=== PATIENT | male | born 1980 | race Two or more races ===

== ENCOUNTER 2019-10-09 14:40 | Inpatient (IN) | payer OTHER ==
[~2019-10-09] VITALS: Ht 162.6 cm; Wt 59.8 kg
[2019-10-09 16:13] LABS: Amylase 48 U/L (25-115); Lipase 115 U/L (73-393)
[2019-10-09 16:15] LABS: Albumin 3.4 g/dL (3.4-5.0); Calcium 9.5 mg/dL (8.5-10.1); Potassium 4.2 mmol/L (3.5-5.1)
[2019-10-09 16:18] LABS: BUN/Creatinine Ratio 18.3; Bilirubin, Total 1.3 mg/dL (0.2-1.0); Total Protein 9.8 g/dL (6.4-8.2)
[2019-10-09] MEDS ORDERED: cefTRIAXone 1GM/50ML D5W 50 ML IV ONE (17:00)
[2019-10-09] MEDS ORDERED: FUROSEMIDE 20 MG/2 ML VIAL IV ONE (17:00)
[2019-10-09 17:34] LABS: Basophils # (auto) 0.1 10 ^3/uL (0-0.2); Eosinophils # (auto) 0 10 ^3/uL (0-0.8); Monocytes # (auto) 1.1 10 ^3/uL (0-1.3); Platelet Count (auto) 97 10^3/uL (140-450)
[2019-10-09 17:35] LABS: Hematocrit 32.6 % (41.0-53.0); Hemoglobin 10.4 g/dL (13.5-17.5); Lymphocytes # (auto) 1.5 10 ^3/uL (0.4-5.4); Lymphocytes % (auto) 17.2 % (10.0-50.0); Mean Corpuscular Hemoglobin 21.4 pg (28.0-32.0); Mean Corpuscular Volume 66.9 fL (80.0-100.0); Monocytes % (auto) 12.3 % (0.0-12.0); Neutrophils # (auto) 6.2 10 ^3/uL (1.6-8.6); Neutrophils % (auto) 69.5 % (37.0-80.0); Nucleated Red Blood Cells % 0.1 %; Red Blood Cells 4.86 10^6/uL (4.5-5.90); White Blood Cell 8.9 10^3/uL (4.4-10.8)
[2019-10-09 17:41] LABS: Red Cell Distribution Width 25.3 % (11.8-14.3)
[2019-10-09 17:45] LABS: Urine Bacteria NONE SEEN /hpf (None Seen); Urine Blood Negative /uL (Negative); Urine Hyaline Cast FEW /lpf (0 - 2); Urine Specific Gravity 1.019 (1.001-1.035); Urine WBC 7 /hpf (0 - 3)
[2019-10-09] MEDS ORDERED: VANCOMYCIN PER PHARMACY 0 MG IV SCH (18:45)
[2019-10-09] MEDS: VANCOMYCIN 1GM/250ML 250 ML IV SCH (20:04)
[2019-10-09] MEDS: FUROSEMIDE 20 MG/2 ML VIAL IV SCH (20:04)
[2019-10-09] MEDS: POTASSIUM CHL 10 Meq TABLET PO SCH (20:05)
--- NOTE | 2019-10-09 20:15 | NUR ---
MS admit from ER ALEJANDRINA STERN admitted to tele/MS after SBAR received. Patient oriented to HANY MARQUES RN primary RN, unit, room, bed, and unit policies regarding patient care and visiting hours. Patient weighed by bedscale and encouraged to call if they need something. All questions and concerns addressed, patient verbalized understanding.
--- NOTE | 2019-10-09 21:00 | NUR ---
Wound pictures: RN took pictures of patient's rashes and umbilical hernia.
[2019-10-09] MEDS: HYDROcodone-ACET 10/325MG TAB PO PRN (21:24)
--- NOTE | 2019-10-09 21:24 | NUR ---
Pain: Patient requesting pain medication. Patient complaining of pain. Patient given PRN [place].
[2019-10-09 22:00] VITALS: BP 115/72
--- NOTE | 2019-10-09 22:00 | NUR ---
Temp: Upon arrival, patient was noted with an elevated temp of 99.6 F. RN provided cooling measures, patient tolerated cooling measures well. RN reassessed temp and noted it to decrease to 98.6F. Patient continues to rest in bed comfortably with no s/s of discomfort or distress.
--- NOTE | 2019-10-09 22:24 | NUR ---
Pain reassessed. Patient reassessed for effectiveness of PRN [place]. PRN morphine effective, patient's pain subsided. Patient resting in bed comfortably.
[2019-10-10] MEDS: HYDROcodone-ACET 10/325MG TAB PO PRN ×3 (01:36→21:13)
--- NOTE | 2019-10-10 01:36 | NUR ---
Pain: Patient requesting pain medication. Patient complaining of pain. Patient given PRN [place].
--- NOTE | 2019-10-10 02:36 | NUR ---
Pain reassessed. Patient reassessed for effectiveness of PRN [place]. PRN morphine effective, patient's pain subsided. Patient resting in bed comfortably.
[2019-10-10 05:57] VITALS: BP 114/88
[2019-10-10] MEDS: FUROSEMIDE 20 MG/2 ML VIAL IV SCH ×2 (06:23→18:12)
[2019-10-10 06:40] LABS: INR 1.07 (0.9-1.15); Partial Thromboplastin Time 28.5 sec (23.64-32.05)
[2019-10-10 06:42] LABS: Basophils # (auto) 0.1 10 ^3/uL (0-0.2); Eosinophils # (auto) 0 10 ^3/uL (0-0.8); Hemoglobin 9.6 g/dL (13.5-17.5); Lymphocytes # (auto) 1.5 10 ^3/uL (0.4-5.4); Nucleated Red Blood Cells % 0.1 %; White Blood Cell 8.2 10^3/uL (4.4-10.8)
[2019-10-10 06:44] LABS: Basophils % (auto) 0.8 % (0.0-2.0); Calcium 9.1 mg/dL (8.5-10.1); Hematocrit 29.6 % (41.0-53.0); Lymphocytes % (auto) 18.9 % (10.0-50.0); Mean Corpuscular Hemoglobin 21.5 pg (28.0-32.0); Mean Corpuscular Hgb Conc. 32.3 g/dL (32.0-36.0); Mean Corpuscular Volume 66.7 fL (80.0-100.0); Monocytes % (auto) 12.3 % (0.0-12.0); Neutrophils # (auto) 5.6 10 ^3/uL (1.6-8.6); Platelet Count (auto) 79 10^3/uL (140-450); Potassium 4.2 mmol/L (3.5-5.1); Red Blood Cells 4.44 10^6/uL (4.5-5.90)
[2019-10-10 06:48] LABS: BUN/Creatinine Ratio 17.7; Total Protein 8.9 g/dL (6.4-8.2)
[2019-10-10 06:52] LABS: Red Cell Distribution Width 25.8 % (11.8-14.3)
--- NOTE | 2019-10-10 07:30 | NUR ---
Opening Shift Note Assumed care of patient, awake and alert. No S/S of distress/SOB or pain. Bed in lowest and locked position with side rails up x2 and call light in reach. Instructed on POC and to call for assist PRN, will continue to monitor for changes Q1hr and PRN.
[2019-10-10] MEDS: VANCOMYCIN 1GM/250ML 250 ML IV SCH ×2 (08:04→20:45)
[2019-10-10 08:10] VITALS: BP 104/70
[2019-10-10 09:00] VITALS: BP 104/70
[2019-10-10] MEDS: POTASSIUM CHL 10 Meq TABLET PO SCH ×2 (09:41→21:07)
[2019-10-10] MEDS: ENOXAPARIN SOD 40 MG/0.4 ML SYRINGE SC SCH (09:44)
[2019-10-10 11:01] LABS: Hepatitis A Ab IgM Negative; Hepatitis B Core IgM Negative; Hepatitis B Surface Antigen Negative (Negative)
[2019-10-10 11:02] LABS: Hepatitis C Antibody Negative (Negative)
--- NOTE | 2019-10-10 11:32 | NUR ---
WOUND CARE NOTE: Wound care into see patient per wound care request regarding "multiple rashes/wounds" that are noted present on admission. Bedside nurse took photograph of patient's multiple skin issue upon admission for reference. Patient is 39 years old male with admitting diagnosis of Liver Failure,Anasarca,Cellulitis bilateral lower extremity. Patient with history of Liver Cirrhosis. Patient is resting in bed in Rm. 244-7. Patient is awake, alert and oriented. Patient is in no stated pain at this time and he appears to be in no pain using [place] Faces Pain Scale. Patient is self turning and repositioning. His Mykel score is 19. Patient noted with 5x4 abdominal hernia. He has multi pink/red rashes, dry dry to Rt posterior knee, foot and ankle. His L posterior knee at popliteal area (5x7cm) with multi small open bleeding wounds. Wounds area red with bright and dark red periwound, minimal serous drainage noted, no odor noted. Cleansed patient's L posterior knee wounds with wound cleanser, patted dry with gauze, applied Thera honey gel, covered with Opti foam and secured with stockinette. Patient tolerated well and denies any other wound. Guards at bedside. RECOMMENDATION: Nursing to continue with EOD/PRN dressing change to L popliteal wounds per MD order, redistribute pressure points with pillows, elevate edematous extremity on pillows, continue monitoring by wound care while patient is hospitalized. Addendum: 10/10/19 at 1409 by Michelle Hernandez RN Amended: Links added.
[2019-10-10 13:05] VITALS: BP 101/68
--- NOTE | 2019-10-10 13:29 | NUR ---
SPOKE TO DR. BOLDEN NEW ORDERS RECEIVED, READ BACK AND VERIFIED. SEE EMR FOR ORDERS.
[2019-10-10] MEDS: methylPREDNISolone SOD SUCC 125 MG/2 ML VL IV SCH ×2 (16:11→21:07)
[2019-10-10 17:00] VITALS: BP 117/74
--- NOTE | 2019-10-10 19:25 | NUR ---
Opening Shift Note Pt is resting in bed with eyes open and resp rate is even and unlabored. Pt is with 2 guards at bedside. Pt has right wrist and LE bilat cuffed to the bed. All extremities are cdi at the cuff sites. POC discussed with pt and pt verbalizes understanding. Pt abd is soft but distended and umbilical hernia noted. Pt with Optifoam drsg behind the knees bilat w/ sleeve drsg to hold in place. Discussed with pt about applying Cortisone cream per orders and pt verbalizes understanding. Bed is low, wheels are locked, and call light is with in reach.
[2019-10-10] MEDS: MONTELUKAST SODIUM 10 MG TAB PO SCH (21:09)
[2019-10-10] MEDS: HYDROCORTISONE 2.5% TOPICAL CREAM 30GM TUBE TOP SCH (21:13)
--- NOTE | 2019-10-10 21:14 | NUR ---
Pt reports abd pain 8/10 at this time and medicated with Hydrocodone 10/325 mg PO per orders.
[2019-10-10 22:00] VITALS: BP 116/84
--- NOTE | 2019-10-10 22:14 | NUR ---
Pain reassessed Pt now reports abd pain 2/10 at this time.
[2019-10-11 05:30] VITALS: BP 114/77
[2019-10-11] MEDS: FUROSEMIDE 20 MG/2 ML VIAL IV SCH ×2 (05:50→17:38)
[2019-10-11] MEDS: HYDROcodone-ACET 10/325MG TAB PO PRN ×4 (05:50→23:42)
--- NOTE | 2019-10-11 05:50 | NUR ---
Pt c/o RUQ pain and rates pain 7/10 at this time. Pt medicated with [place] 10/325mg PO per orders.
[2019-10-11] MEDS: VANCOMYCIN 1GM/250ML 250 ML IV SCH (08:59)
[2019-10-11 09:00] VITALS: BP 104/67
[2019-10-11] MEDS: FLUTICASONE PROP NASAL SPR 0.05 % (50MCG) 16GM EACHNOSTRI SCH ×2 (10:00→17:41)
[2019-10-11] MEDS: ENOXAPARIN SOD 40 MG/0.4 ML SYRINGE SC SCH (10:00)
[2019-10-11] MEDS: methylPREDNISolone SOD SUCC 125 MG/2 ML VL IV SCH ×2 (11:22→23:41)
[2019-10-11] MEDS: POTASSIUM CHL 10 Meq TABLET PO SCH ×2 (11:22→22:00)
[2019-10-11] MEDS: LORATADINE 10 MG TAB PO SCH (11:22)
[2019-10-11] MEDS: HYDROCORTISONE 2.5% TOPICAL CREAM 30GM TUBE TOP SCH ×2 (11:23→23:43)
[2019-10-11 13:00] VITALS: BP 125/72
[2019-10-11 17:00] VITALS: BP 129/73
--- NOTE | 2019-10-11 18:09 | NUR ---
DRG CHANGE WAS COMPLETED PER WOUND CARE ORDERS.
[2019-10-11] MEDS: MONTELUKAST SODIUM 10 MG TAB PO SCH (23:42)
[2019-10-12] MEDS ORDERED: VANCOMYCIN 1GM/250ML 250 ML IV SCH (05:00)
[2019-10-12 05:30] VITALS: BP 117/72
[2019-10-12] MEDS: HYDROcodone-ACET 10/325MG TAB PO PRN ×3 (05:30→23:28)
[2019-10-12 06:11] LABS: Albumin 2.9 g/dL (3.4-5.0); Calcium 9.5 mg/dL (8.5-10.1); Potassium 4.7 mmol/L (3.5-5.1)
[2019-10-12 06:14] LABS: BUN/Creatinine Ratio 31.1
[2019-10-12] MEDS: FUROSEMIDE 20 MG/2 ML VIAL IV SCH ×3 (06:14→18:38)
[2019-10-12 06:16] LABS: Total Protein 9.5 g/dL (6.4-8.2)
[2019-10-12 09:00] VITALS: BP 104/61
[2019-10-12] MEDS: ENOXAPARIN SOD 40 MG/0.4 ML SYRINGE SC SCH (10:00)
[2019-10-12] MEDS: FLUTICASONE PROP NASAL SPR 0.05 % (50MCG) 16GM EACHNOSTRI SCH (10:09)
[2019-10-12] MEDS: methylPREDNISolone SOD SUCC 125 MG/2 ML VL IV SCH ×3 (10:09→23:29)
[2019-10-12] MEDS: LORATADINE 10 MG TAB PO SCH (10:09)
[2019-10-12] MEDS: POTASSIUM CHL 10 Meq TABLET PO SCH ×3 (10:10→23:30)
[2019-10-12] MEDS: HYDROCORTISONE 2.5% TOPICAL CREAM 30GM TUBE TOP SCH ×2 (10:11→23:30)
[2019-10-12 12:50] VITALS: BP 100/71
[2019-10-12 16:56] VITALS: BP 116/70
[2019-10-12] MEDS: CIPROFLOXACIN HCL 500 MG TAB PO SCH ×2 (18:34→23:28)
[2019-10-12 22:00] VITALS: BP 113/70
[2019-10-12] MEDS: MONTELUKAST SODIUM 10 MG TAB PO SCH (23:28)
[2019-10-13 05:00] VITALS: BP 102/56
[2019-10-13] MEDS: FUROSEMIDE 20 MG/2 ML VIAL IV SCH ×2 (06:00→17:33)
[2019-10-13 06:26] LABS: BUN/Creatinine Ratio 43.9; Calcium 9.4 mg/dL (8.5-10.1)
--- NOTE | 2019-10-13 07:41 | NUR ---
Opening Note Assumed pt care from [facility] nurse. Pt is a/ox4 with no s/s of distress or SOB. Pt is currently sitting upright in bed eating breakfast with no complaints at this time. Discussed POC with pt and need to perform wound care; pt verbalized understanding. Safety measures maintained with call light within reach, bed in lowest position and side rails up. Will continue to monitor.
[2019-10-13 09:18] VITALS: BP 96/66
[2019-10-13] MEDS: ENOXAPARIN SOD 40 MG/0.4 ML SYRINGE SC SCH (10:00)
[2019-10-13] MEDS: POTASSIUM CHL 10 Meq TABLET PO SCH (10:00)
[2019-10-13] MEDS: FLUTICASONE PROP NASAL SPR 0.05 % (50MCG) 16GM EACHNOSTRI SCH (10:11)
[2019-10-13] MEDS: LORATADINE 10 MG TAB PO SCH (10:11)
[2019-10-13] MEDS: CIPROFLOXACIN HCL 500 MG TAB PO SCH (10:11)
[2019-10-13] MEDS: methylPREDNISolone SOD SUCC 125 MG/2 ML VL IV SCH (10:11)
[2019-10-13] MEDS: HYDROCORTISONE 2.5% TOPICAL CREAM 30GM TUBE TOP SCH (10:13)
--- NOTE | 2019-10-13 10:14 | NUR ---
Wound Care Complete Wound care complete per MD's orders. Dressing changed behind pt's knee. Will continue to monitor.
[2019-10-13 13:00] VITALS: BP 98/67
[2019-10-13] MEDS ORDERED: FURO40TA4 PO (13:05)
[2019-10-13] MEDS ORDERED: LORA-154 PO (13:05)
[2019-10-13] MEDS ORDERED: CEPH-37 PO (13:05)
[2019-10-13] MEDS ORDERED: PRED20TA2 PO (13:05)
[2019-10-13] MEDS ORDERED: MONT10TA23 PO (13:05)
[2019-10-13] MEDS ORDERED: POTA-167 PO (13:05)
[2019-10-13] MEDS ORDERED: HYD25TP TOP (13:05)
--- NOTE | 2019-10-13 13:47 | NUR ---
Zak Crespo MD regarding d/c status. Inquiring if pt is to be discharged today. Left message with paging service. Will continue to monitor. Addendum: 10/13/19 at 1426 by LOU GRIGSBY RN RN Paged back. Orders to d/c pt home. Orders read back and verified. Will implement.
[2019-10-13 14:29] VITALS: BP 98/67
--- NOTE | 2019-10-13 15:59 | NUR ---
Guards Aware of Pt's D/C Aware of POC and d/c. Attempting to arrange ride.
--- NOTE | 2019-10-13 16:01 | NUR ---
Wound Photo's Taken for Reference
[2019-10-13] MEDS: HYDROcodone-ACET 10/325MG TAB PO PRN (16:34)
--- NOTE | 2019-10-13 17:45 | NUR ---
IV D/C'ed Iv to pt's L wrist/hand d/c'ed. Catheter was removed fully intact. Site is asymptomatic. Pressure was applied to site for 3 minutes with gauze and then wrapped in coban. Pt instructed to keep dressing on for 30 minutes; pt verbalized understanding.
--- NOTE | 2019-10-13 17:50 | NUR ---
D/C D/C paper work was given to guards. All questions were answered on behalf of the patient and the guards. Aware of new prescriptions, recommendations, and POC. IV was d/c'ed from pt. Pt is currently a/ox4 with no s/s of distress. Addendum: 10/13/19 at 1820 by LOU GRIGSBY RN RN Currently awaiting transportation from longterm.
== END 2019-10-13 17:45 | DRG 603 ==
LOC: ER 14:40 → EEVIPCON 14:40 → OVERFLOW 14:41 → EAST 20:10
PROVIDERS: ADMIT Internal Medicine; ATTEND Internal Medicine
DX: L03.116 Cellulitis of left lower limb (principal); L03.115 Cellulitis of right lower limb; Z83.3 Family history of diabetes mellitus; L20.9 Atopic dermatitis, unspecified
CPT/HCPCS: 36415; 74176; 76705; 80048; 80053; 80074; 80202; 81001; 82140; 82150; 83690; 85025; 85610; 85730; 87040; 87077; 87081; 87186; 87205; 93970; 96365; 96375; G0378; J0696

== ENCOUNTER 2019-12-09 17:28 | Inpatient (IN) | payer OTHER ==
[~2019-12-09] VITALS: Ht 160 cm; Wt 57.7 kg
[~2019-12-09 17:28] MED LIST: CEPH-37 PO; FURO40TA4 PO; HYD25TP TOP; LORA-154 PO; MONT10TA23 PO; POTA-167 PO; PRED20TA2 PO
[2019-12-09 18:11] LABS: Basophils # (auto) 0.1 10 ^3/uL (0-0.2); Eosinophils # (auto) 0 10 ^3/uL (0-0.8)
[2019-12-09 18:12] LABS: Basophils % (auto) 1.5 % (0.0-2.0); Hematocrit 35.1 % (41.0-53.0); Lymphocytes # (auto) 2.1 10 ^3/uL (0.4-5.4); Lymphocytes % (auto) 27.5 % (10.0-50.0); Mean Corpuscular Hemoglobin 21.7 pg (28.0-32.0); Mean Corpuscular Hgb Conc. 31.2 g/dL (32.0-36.0); Mean Corpuscular Volume 69.3 fL (80.0-100.0); Monocytes % (auto) 13.3 % (0.0-12.0); Neutrophils # (auto) 4.4 10 ^3/uL (1.6-8.6); Neutrophils % (auto) 57.7 % (37.0-80.0); Nucleated Red Blood Cells % 0.1 %; Platelet Count (auto) 174 10^3/uL (140-450); Red Blood Cells 5.07 10^6/uL (4.5-5.90); White Blood Cell 7.6 10^3/uL (4.4-10.8)
[2019-12-09 18:32] LABS: Albumin 3.7 g/dL (3.4-5.0); Calcium 9.5 mg/dL (8.5-10.1); Potassium 3.9 mmol/L (3.5-5.1)
[2019-12-09 18:35] LABS: BUN/Creatinine Ratio 15.8; Bilirubin, Total 1.1 mg/dL (0.2-1.0); Total Protein 10.4 g/dL (6.4-8.2)
[2019-12-09 18:38] LABS: Red Cell Distribution Width 27.6 % (11.8-14.3)
[2019-12-09] MEDS ORDERED: MORPHINE SULF INJ 2 MG/ML SYRINGE 1ML IV ONE (19:00)
[2019-12-09] MEDS ORDERED: ONDANSETRON HCL 4 MG/2 ML VIAL IV ONE (19:00)
[2019-12-09] MEDS: POTASSIUM CHL 20 Meq TABLET PO SCH (21:17)
[2019-12-09] MEDS: FUROSEMIDE 100 MG/10ML VIAL IV SCH (21:17)
[2019-12-09 22:30] VITALS: BP 118/83
[2019-12-09] MEDS: MORPHINE SULF INJ 2 MG/ML SYRINGE 1ML IV PRN (23:54)
[2019-12-09] MEDS: ONDANSETRON HCL 4 MG/2 ML VIAL IV PRN (23:54)
[2019-12-10 05:00] VITALS: BP 107/68
[2019-12-10] MEDS: ONDANSETRON HCL 4 MG/2 ML VIAL IV PRN ×2 (05:36→20:54)
[2019-12-10] MEDS: FUROSEMIDE 100 MG/10ML VIAL IV SCH ×2 (05:36→18:16)
[2019-12-10] MEDS: MORPHINE SULF INJ 2 MG/ML SYRINGE 1ML IV PRN ×4 (05:36→20:53)
[2019-12-10 06:51] LABS: Eosinophils # (auto) 0 10 ^3/uL (0-0.8); Lymphocytes # (auto) 2.3 10 ^3/uL (0.4-5.4); Mean Corpuscular Hemoglobin 21.8 pg (28.0-32.0); Mean Corpuscular Hgb Conc. 31.7 g/dL (32.0-36.0); Mean Corpuscular Volume 68.8 fL (80.0-100.0); Nucleated Red Blood Cells % 0.1 %
[2019-12-10 06:53] LABS: Basophils # (auto) 0.1 10 ^3/uL (0-0.2); Basophils % (auto) 1.4 % (0.0-2.0); Hemoglobin 11.1 g/dL (13.5-17.5); Lymphocytes % (auto) 28.3 % (10.0-50.0); Monocytes % (auto) 12.2 % (0.0-12.0); Neutrophils # (auto) 4.7 10 ^3/uL (1.6-8.6); Neutrophils % (auto) 58.1 % (37.0-80.0); Platelet Count (auto) 163 10^3/uL (140-450); Red Blood Cells 5.08 10^6/uL (4.5-5.90)
[2019-12-10 06:59] LABS: Red Cell Distribution Width 27.3 % (11.8-14.3)
[2019-12-10 07:01] LABS: Potassium 4.5 mmol/L (3.5-5.1)
[2019-12-10 07:08] LABS: Albumin 3.9 g/dL (3.4-5.0); BUN/Creatinine Ratio 16.1; Bilirubin, Total 1.2 mg/dL (0.2-1.0); Calcium 9.7 mg/dL (8.5-10.1); Total Protein 10.7 g/dL (6.4-8.2)
[2019-12-10 08:24] LABS: INR 1.07 (0.9-1.15)
[2019-12-10 09:00] VITALS: BP 107/79
[2019-12-10] MEDS: SPIRONOLACTONE 25 MG TAB PO SCH (10:36)
[2019-12-10] MEDS: POTASSIUM CHL 20 Meq TABLET PO SCH ×2 (10:36→22:49)
[2019-12-10 13:00] VITALS: BP 115/71
[2019-12-10 17:00] VITALS: BP 101/69
[2019-12-10 22:00] VITALS: BP 108/72
[2019-12-11 05:00] VITALS: BP 107/70
[2019-12-11 06:07] LABS: Potassium 4.5 mmol/L (3.5-5.1)
[2019-12-11] MEDS: FUROSEMIDE 100 MG/10ML VIAL IV SCH (06:08)
[2019-12-11 06:15] LABS: BUN/Creatinine Ratio 22.6; Calcium 9.4 mg/dL (8.5-10.1)
[2019-12-11] MEDS: MORPHINE SULF INJ 2 MG/ML SYRINGE 1ML IV PRN (06:17)
[2019-12-11] MEDS: ONDANSETRON HCL 4 MG/2 ML VIAL IV PRN (06:18)
[2019-12-11 08:00] VITALS: BP 105/69
[2019-12-11 09:00] VITALS: BP 105/69
[2019-12-11] MEDS: SPIRONOLACTONE 25 MG TAB PO SCH (10:08)
[2019-12-11] MEDS: POTASSIUM CHL 20 Meq TABLET PO SCH (10:08)
[2019-12-11 13:11] VITALS: BP 112/79
[2019-12-11 14:02] VITALS: BP 112/79
== END 2019-12-11 18:40 | DRG 442 ==
LOC: ER 17:28 → EEVIPCON 17:28 → OVERFLOW 17:29 → WEST WING 21:34
PROVIDERS: ADMIT Internal Medicine; ATTEND Internal Medicine
PROC: 0W9G3ZZ Drainage of Peritoneal Cavity, Percutaneous Approach (ICD-10-PCS; principal; 2019-12-10)
DX: K72.90 Hepatic failure, unspecified without coma (principal); R18.8 Other ascites; K74.60 Unspecified cirrhosis of liver; L30.9 Dermatitis, unspecified; K42.9 Umbilical hernia without obstruction or gangrene; Z83.3 Family history of diabetes mellitus
CPT/HCPCS: 10022; 36415; 74176; 76705; 76942; 80048; 80053; 83615; 83880; 83986; 85025; 85610; 87205; 89051; G0378; J2405